=== PATIENT | female | born 1970 | race Caucasian/White ===

== ENCOUNTER → 2017-05-06 | Outpatient (CLI) | payer BC ==
[~2017-05-06] MED LIST: ACE325 PO; HYDR-4309 PO; IBUP600T22 PO; KET10 PO; LACT1CAP6 PO; LOR5/325 PO; PER PO
[2017-05-06 07:15] LABS: PLATELET COUNT, AUTOMATED 245 K/uL (150-450)
== END ==
LOC: LAB 06:54
PROVIDERS: ATTEND Nurse Practitioner Family
DX: D50.9 Iron deficiency anemia, unspecified (principal); D51.0 Vitamin B12 deficiency anemia due to intrinsic factor deficiency; E55.9 Vitamin D deficiency, unspecified
CPT/HCPCS: 36415; 81001; 82040; 82247; 82310; 82374; 82435; 82565; 82728; 82947; 84075; 84132; 84155; 84295; 84450; 84460; 84520; 85025

== ENCOUNTER → 2017-08-14 | Outpatient (CLI) | payer BC ==
[2017-08-14 15:11] LABS: PLATELET COUNT, AUTOMATED 217 K/uL (150-450)
== END ==
LOC: LAB 14:47
PROVIDERS: ATTEND Nurse Practitioner Family
DX: I10 Essential (primary) hypertension (principal); D50.9 Iron deficiency anemia, unspecified; D51.0 Vitamin B12 deficiency anemia due to intrinsic factor deficiency; E55.9 Vitamin D deficiency, unspecified
CPT/HCPCS: 36415; 82040; 82247; 82306; 82310; 82374; 82435; 82565; 82607; 82728; 82947; 84075; 84132; 84155; 84295; 84450; 84460; 84520; 85025

== ENCOUNTER 2018-04-05 16:24 | Emergency (ER) | payer BC ==
[~2018-04-05 16:24] MED LIST changes: -HYDR-4309 PO; +HYDR-653 PO
[2018-04-05] MEDS ORDERED: LOSA100T75 PO (16:51)
[2018-04-05] MEDS ORDERED: bcp PO (16:51)
--- NOTE | 2018-04-05 16:59 | ER Report ---
History and Physical Time Seen By MD: 16:40 Hx. of Stated Complaint: laceration of finger HPI/ROS CHIEF COMPLAINT: Finger laceration HISTORY OF PRESENT ILLNESS: 47-year-old female patient presents to emergency room with complaint of laceration to the right fourth finger. Patient states that she was cleaning a knife when the knife slipped and cut her finger. Patient states she did apply pressure. They did try to get the bleeding stopped with the span of 30 minutes before unable to. At that time that secondary emergency room for evaluation and treatment. Allergies: Coded Allergies: No Known Drug Allergies (Unverified , 04/05/18) Home Meds Active Scripts Hydrocodone Bit/Acetaminophen (NORCO 5-325 TABLET) 1 Each Tablet, 1 EACH PO Q4- 6H PRN for PAIN, #20 TAB Prov:TEA LU PE MANAGER 02/26/14 Ibuprofen (IBUPROFEN) 600 Mg Tablet, 1 TAB PO Q6H, #30 TAB Prov:TEA LU PE MANAGER 02/26/14 Reported Medications [bcp] No Conflict Check, 1 TAB PO QDAY 04/05/18 Losartan Potassium (LOSARTAN POTASSIUM) 100 Mg Tablet, 100 MG PO QDAY 04/05/18 Hydrocodone Bit/Acetaminophen (HYDROCODON-ACETAMINOPHEN 5-325) 1 Each Tablet, 1 EACH PO Q6H PRN, #20 11/17/12 Lactobacillus Combination No.4 (PROBIOTIC) 1 Each Capsule, 1 EACH PO DAILY 11/17/12 Past Medical/Surgical History Patient has a past medical history of hypertension. Patient's previous surgeries are cholecystectomy, bilateral knee scopes, and lasix. Reviewed Nurses Notes: Yes Hx Smoking: No Smoking Status: Never Smoker Hx Substance Use Disorder: No Hx Alcohol Use: No Constitutional Vital Sign - Last 24 Hours 04/05/18 04/05/18 04/05/18 04/05/18 16:24 16:45 16:46 16:51 Temp 98.0 Pulse 98 Resp 14 B/P (MAP) 148/118 (128) 111/93 (99) Pulse Ox 92 O2 Delivery Room Air 04/05/18 04/05/18 04/05/18 04/05/18 16:54 17:00 17:24 17:30 Pulse 111 100 B/P (MAP) 123/99 (107) 91/60 (70) Pulse Ox 96 94 04/05/18 04/05/1818 17:35 18:05 18:09 Pulse 98 92 B/P (MAP) 128/84 (99) Pulse Ox 93 94 Physical Exam General appearance: Alert no distress. Respiratory: Chest is non tender, lungs are clear to auscultation. Cardiac: Regular rate and rhythm. Skin: Patient has a 1 centimeter laceration to the right fourth finger does go into the subcutaneous tissue. DIFFERENTIAL DIAGNOSIS: After history and physical exam differential diagnosis was considered for laceration. Medical Decision Making ED Course/Re-evaluation ED Course Patient is admitted and examined, history and physical were obtained. Differential diagnoses were considered. I examination lungs are clear, heart is regular. The finger was anesthetized, cleaned and repaired described below. Patient tolerated procedure well. We'll go ahead and discharge her home at this time. She is to monitor for signs of infection. She is trying the emergency room with any concerns. Just follow-up with her primary care provider in 7-10 days to have the sutures removed. Patient and verbalized understanding and ag reement with plan. Procedure: Laceration repair. Verbal consent was obtained from the patient. The 1 cm laceration on the right fourth finger was anesthetized in the usual fashion. The wound was scrubbed, draped and explored to its base with a gloved finger. There were no deep structures involved. No tendon injury was identified. The wound was repaired with 3 simple interrupted sutures using 5-0 Prolene material. The wound repair was simple. The procedure was performed by myself. Decision to Disposition Date: Apr 05, 2018 Decision to Disposition Time: 18:02 Depart Departure Latest Vital Signs Vital Signs Date Time Temp Pulse Resp B/P (MAP) Pulse Ox O2 Delivery O2 Flow Rate FiO2 04/05/18 18:09 128/84 (99) 04/05/18 18:05 92 94 04/05/18 16:46 98.0 14 Room Air Impression: Primary Impression: Finger laceration Condition: Improved Disposition: HOME OR SELF-CARE Referrals: THEA HOPSON (PCP) Patient Instructions: Finger Laceration (ED) Additional Instructions: Keep wound dry for 48 hours. Follow up with your primary care provider in the next 7-10 days to have sutures removed. Monitor for signs of infection; redness, swelling, heat, discharge, increasing pain or red streaking. Take Tylenol or Ibuprofen as needed for pain. Return to the ER with any concerns. You may change dressing as needed. Problem Qualifiers Primary Impression: Finger laceration Encounter type: initial encounter Finger: index finger Damage to nail status: without damage Foreign body presence: without foreign body Laterality: left Qualified Codes: S61.211A - Laceration without foreign body of left index finger without damage to nail, initial encounter TEA LU Apr 05, 2018 16:59
[2018-04-05] MEDS: DIPHTH/TETANUS/ACEL. PERTUSSIS IM ONLY ONE (17:59)
[2018-04-05 18:09] VITALS: BP 128/84
== END 2018-04-05 18:14 | disposition home or self-care (01) ==
LOC: ER 16:41
DX: S61.211A Laceration without foreign body of left index finger without damage to nail, initial encounter (principal); W26.0XXA Contact with knife, initial encounter
CPT/HCPCS: 90471; 90715; 99283